=== PATIENT | male | born 1970 | race Caucasian/White ===

== ENCOUNTER → 2018-06-17 | Outpatient (CLI) | payer OTHER ==
[~2018-06-17] MED LIST: ADDERALL XR30 MG PO; CLEOCIN150 MG PO; HYDROCODONE BIT1 T11 PO; TOBRADEX 0.1%-0.5 ML OPH
--- NOTE | ~2018-06-17 | EKG ---
[place], [place] ELECTROCARDIOGRAM REPORT NAME: WILMER ESTRELLA UNIT #: [id number] ROOM: DOCTOR: EPIPHANY DRAFT REPORT BIRTHDATE: [birth year] [facility] Test Date: 2018-06-17 Test Time: 17:52:13 Pat Name: WILMER ESTRELLA Department: OPF Room: Gender: M Job Estimator: EKG.MN : 1970 Requested By: GINNY BEAL Order Number: [id number] Reading MD: Chance Ayala MD Measurements Intervals [place] Rate: 102 P: 77 MD: 117 QRS: 92 QRSD: 83 T: 58 QT: 330 QTc: 430 Interpretive Statements Sinus tachycardia Electronically Signed On 06-21-2018 21:10:49 PST by Chance Ayala MD CM:EKGRPT:ELECTROCARDIOGRAM REPORT 1752 GINNY BEAL EPIPHANY DRAFT REPORT GINNY BEAL
== END | disposition home or self-care (01) ==
LOC: CARD 16:54
DX: Z51.81 Encounter for therapeutic drug level monitoring (principal); Z79.899 Other long term (current) drug therapy

== ENCOUNTER → 2020-01-31 | Outpatient (CLI) | payer OTHER | END | disposition home or self-care (01) | LOC: CARD 16:19 | DX: I21.9 Acute myocardial infarction, unspecified (principal); I25.2 Old myocardial infarction; Z79.899 Other long term (current) drug therapy ==

== ENCOUNTER 2023-12-05 20:29 | Emergency (ER) | payer OTHER ==
[~2023-12-05] VITALS: Ht 172.7 cm; Wt 54.4 kg
[2023-12-05 20:41] VITALS: BP 137/99
[2023-12-05 21:19] LABS: BASO % 0.2 % (0.0-1.0); EOS # 0.1 10*3/uL (0.0-0.4); EOS % 1.1 % (1.0-4.0); LYMPH # 1.7 10*3/uL (1.3-4.4); MEAN CELL VOLUME 89.2 fl (80.0-94.0); MEAN CORPUSCULAR HGB 29.3 pg (27.0-31.0); MEAN CORPUSCULAR HGB CONC 32.9 g/dl (33.0-37.0); MEAN PLATELET VOLUME 8.9 fl (9.6-12.3); MONO # 0.5 10*3/uL (0.1-1.0); MONO % 6.3 % (3.0-9.0); PLATELET COUNT AUTOMATED 256 10*3/uL (130-400); RED BLOOD COUNT 4.71 10*6/uL (4.50-5.90); RED CELL DISTRI WIDTH 12.2 % (0-14.5); WHITE BLOOD COUNT 8.4 10*3/uL (4.8-10.8)
[2023-12-05 21:43] LABS: ALKALINE PHOSPHATASE 73 U/L (46-116); BUN 13 mg/dl (9-23); CHLORIDE 101 mmol/L (98-107); LIPASE 67 U/L (12-53); POTASSIUM 3.6 mmol/L (3.4-5.1); SGPT/ALT 15 U/L (5-49); TOTAL PROTEIN 7.4 gm/dL (6.0-8.0)
[2023-12-05] MEDS ORDERED: HYDROCODONE-AC1 EAC1 PO (22:51)
== END 2023-12-05 23:06 | disposition home or self-care (01) ==
LOC: ED 20:29
PROVIDERS: Nurse Practitioner Family
DX: S22.42XA Multiple fractures of ribs, left side, initial encounter for closed fracture (principal); Z98.890 Other specified postprocedural states; X58.XXXA Exposure to other specified factors, initial encounter; Y93.89 Activity, other specified; Y92.89 Other specified places as the place of occurrence of the external cause; Y99.8 Other external cause status